=== PATIENT | female | born 1995 | race Caucasian/White ===

== ENCOUNTER 2023-12-17 12:38 | Inpatient (IN) | payer OTHER ==
[2023-12-17 14:54] VITALS: BMI 23.2
[2023-12-17] MEDS ORDERED: IBUPROFEN 400 MG TABLET (FP) PO PRN (15:23)
[2023-12-17] MEDS ORDERED: diazePAM 5 MG TABLET PO PRN (15:23)
[2023-12-17] MEDS ORDERED: NALOXONE HCL (KLOXXADO) 8 MG SPRAY NS PRN (15:23)
[2023-12-17] MEDS ORDERED: DICYCLOMINE HCL 10 MG CAPSULE PO PRN (15:23)
[2023-12-17] MEDS ORDERED: BENZONATATE 200 MG CAPSULE PO PRN (15:23)
[2023-12-17] MEDS ORDERED: NICOTINE POLACRILEX 2 MG GUM BUC PRN (15:23)
[2023-12-17] MEDS ORDERED: BENZOCAINE/MENTHOL (CHLORASEPTIC ) LOZENGE MM PRN (15:23)
[2023-12-17] MEDS ORDERED: LOPERAMIDE HCL 2 MG CAPSULE PO PRN (15:23)
[2023-12-17] MEDS ORDERED: MAGNESIUM HYDROX 2400MG/30ML ORAL SUSPENSION 30 ML CUP PO PRN (15:23)
[2023-12-17] MEDS ORDERED: IBUPROFEN 600 MG TABLET (FP) PO PRN (15:23)
[2023-12-17] MEDS ORDERED: NALOXONE HCL 0.4 MG/ML VIAL IM PRN (15:23)
[2023-12-17] MEDS ORDERED: BISMUTH SUBSALICYLATE 524 MG/30 ML PO PRN (15:23)
[2023-12-17] MEDS ORDERED: ACETAMINOPHEN 325 MG TABLET (FP) PO PRN (15:23)
[2023-12-17] MEDS ORDERED: guaiFENesin 600 MG TABLET.ER (FP) PO PRN (15:23)
[2023-12-17] MEDS ORDERED: POLYETHYLENE GLYCOL (HEALTHYLAX) 3350 17 GM PACKET PO PRN (15:23)
[2023-12-17] MEDS ORDERED: MAG HYDROX/AL HYDROX/SIMETH 30 ML UNIT-DOSE CUP PO PRN (15:23)
[2023-12-17] MEDS ORDERED: ONDANSETRON *ODT* 4 MG TABLET SL PRN (15:23)
[2023-12-17] MEDS: diazePAM 5 MG TABLET PO SCH (18:15)
[2023-12-17] MEDS: MELATONIN 5 MG TABLETS PO SCH (22:21)
[2023-12-17] MEDS: THIAMINE 100 MG TABLET PO SCH (22:21)
[2023-12-18] MEDS ORDERED: methaDONE HCL 10 MG TABLET PO ONE (10:00)
[2023-12-18] MEDS: PRENATAL VITAMINS W/ FOLIC ACID TABLET (FP) PO SCH (10:31)
[2023-12-18 11:33] LABS: HEMATOCRIT 41.6 % (32.4-45.2); HEMOGLOBIN 14.1 GM/dL (10.7-15.3); MCH 30.7 pg (25.7-33.7); MEAN CELL VOLUME 90.3 fl (80-96); MEAN PLT VOLUME 7.9 fl (7.5-11.1); PLATELET COUNT 271 10^3/uL (134-434); RBC 4.61 M/mm3 (3.60-5.2); RDW 13.2 % (11.6-15.6); WHITE BLOOD COUNT 6.3 K/mm3 (4.0-10.0)
[2023-12-18 12:01] LABS: CHLORIDE 100 mmol/L (98-107); SODIUM 136 mmol/L (136-145)
[2023-12-18 12:04] LABS: CALCIUM 9.6 mg/dL (8.5-10.1)
[2023-12-18 12:05] LABS: ALBUMIN 3.6 g/dl (3.4-5.0); ANION GAP 8 mmol/L (4-13); BLOOD UREA NITROGEN 6.4 mg/dL (7-18); CO2 28 mmol/L (21-32); GLUCOSE,RANDOM 103 mg/dL (74-106)
[2023-12-18 12:08] LABS: CREATININE 0.7 mg/dL (0.55-1.3); SGOT/AST 25 U/L (15-37); SGPT/ALT 26 U/L (13-61)
[2023-12-18 12:10] LABS: BILIRUBIN,TOTAL 1.3 mg/dL (0.2-1); TOT PROT 7.1 g/dl (6.4-8.2)
[2023-12-18 12:11] LABS: ALK PHOS 80 U/L (45-117)
[2023-12-18] MEDS: NICOTINE 7 MG/24 HOURS TOPICAL PATCH TD PRN (17:31)
[2023-12-18] MEDS: diphenhydrAMINE HCL 50 MG CAPSULE PO PRN (22:18)
[2023-12-19] MEDS: diazePAM 5 MG TABLET PO SCH (05:50)
[2023-12-19] MEDS: methaDONE 40 MG, methaDONE 10 MG PO ONE (05:50)
[2023-12-19] MEDS ORDERED: methaDONE HCL 10 MG TABLET PO ONE (10:00)
[2023-12-20] MEDS: diazePAM 5 MG TABLET PO SCH (05:40)
[2023-12-20] MEDS ORDERED: methaDONE HCL 10 MG TABLET PO ONE (10:00)
[2023-12-20] MEDS: METHOCARBAMOL 500 MG TABLET PO PRN (22:31)
[2023-12-21] MEDS: methaDONE HCL 40 MG DISPERSABLE TABLET PO ONE (06:02)
[2023-12-21] MEDS: diazePAM 5 MG TABLET PO ONE (06:02)
[2023-12-21] MEDS: hydrOXYzine PAMOATE 25 MG CAPSULE (FP) PO PRN (17:56)
[2023-12-22] MEDS ORDERED: methaDONE HCL 10 MG TABLET PO ONE (06:00)
[2023-12-22] MEDS: diazePAM 5 MG TABLET PO ONE (06:04)
[2023-12-22 09:11] VITALS: BP 101/64; PULSE 90; RESP 18; TEMP 97.7
== END 2023-12-22 10:00 | disposition home or self-care (01) | DRG 773 ==
LOC: YASAS 12:38 → Y6N 16:56
PROVIDERS: ADMIT Allergy & Immunology; ATTEND Surgery
PROC: HZ2ZZZZ Detoxification Services for Substance Abuse Treatment (ICD-10-PCS; principal; 2023-12-17)
DX: F10.230 Alcohol dependence with withdrawal, uncomplicated (principal); F11.20 Opioid dependence, uncomplicated; F12.20 Cannabis dependence, uncomplicated; F17.213 Nicotine dependence, cigarettes, with withdrawal; F43.10 Post-traumatic stress disorder, unspecified; F41.9 Anxiety disorder, unspecified
CPT/HCPCS: 36415; 80053; 80305; 80307; 81025; 85027; 86780; 93005; 93010

== ENCOUNTER 2024-04-02 11:39 | Inpatient (IN) | payer OTHER ==
[2024-04-02 12:20] VITALS: BMI 22.6
[2024-04-02] MEDS ORDERED: NALOXONE (NARCAN) HCL 4 MG/0.1 ML SPRAY NS PRN (13:58)
[2024-04-02] MEDS ORDERED: MAGNESIUM HYDROX 2400MG/30ML ORAL SUSPENSION 30 ML CUP PO PRN (13:58)
[2024-04-02] MEDS ORDERED: NALOXONE HCL 0.4 MG/ML VIAL IM PRN (13:58)
[2024-04-02] MEDS ORDERED: ONDANSETRON *ODT* 4 MG TABLET SL PRN (13:58)
[2024-04-02] MEDS ORDERED: diazePAM 5 MG TABLET PO PRN (13:58)
[2024-04-02] MEDS ORDERED: guaiFENesin 600 MG TABLET.ER (FP) PO PRN (13:58)
[2024-04-02] MEDS ORDERED: BENZOCAINE/MENTHOL (CHLORASEPTIC ) LOZENGE MM PRN (13:58)
[2024-04-02] MEDS ORDERED: MAG HYDROX/AL HYDROX/SIMETH 30 ML UNIT-DOSE CUP PO PRN (13:58)
[2024-04-02] MEDS ORDERED: DICYCLOMINE HCL 10 MG CAPSULE PO PRN (13:58)
[2024-04-02] MEDS ORDERED: BISMUTH SUBSALICYLATE 524 MG/30 ML PO PRN (13:58)
[2024-04-02] MEDS ORDERED: POLYETHYLENE GLYCOL (HEALTHYLAX) 3350 17 GM PACKET PO PRN (13:58)
[2024-04-02] MEDS ORDERED: BENZONATATE 200 MG CAPSULE PO PRN (13:58)
[2024-04-02] MEDS ORDERED: LOPERAMIDE HCL 2 MG CAPSULE PO PRN (13:58)
[2024-04-02] MEDS ORDERED: PRENATAL VITAMINS W/ FOLIC ACID TABLET (FP) PO ONE (15:02)
[2024-04-02] MEDS ORDERED: IBUPROFEN 400 MG TABLET (FP) PO ONE (15:02)
[2024-04-02] MEDS: PRENATAL VITAMINS W/ FOLIC ACID TABLET (FP) PO SCH (15:05)
[2024-04-02] MEDS: IBUPROFEN 400 MG TABLET (FP) PO PRN (15:05)
[2024-04-02] MEDS: diazePAM 5 MG TABLET PO SCH (17:27)
[2024-04-02] MEDS: hydrOXYzine PAMOATE 25 MG CAPSULE (FP) PO PRN (17:28)
[2024-04-02] MEDS: MELATONIN 5 MG TABLETS PO SCH (22:20)
[2024-04-02] MEDS: THIAMINE 100 MG TABLET PO SCH (22:20)
[2024-04-02] MEDS: METHOCARBAMOL 500 MG TABLET PO PRN (22:21)
[2024-04-02] MEDS: ACETAMINOPHEN 325 MG TABLET (FP) PO PRN (22:21)
[2024-04-03] MEDS: IBUPROFEN 600 MG TABLET (FP) PO PRN (05:33)
[2024-04-03] MEDS: NICOTINE 14 MG/24 HOURS TOPICAL PATCH TD SCH (10:16)
[2024-04-03 12:47] LABS: HEMATOCRIT 42.6 % (32.4-45.2); HEMOGLOBIN 14.3 GM/dL (10.7-15.3); MCH 30.8 pg (25.7-33.7); MCHC 33.6 g/dl (32.0-36.0); MEAN CELL VOLUME 91.5 fl (80-96); MEAN PLT VOLUME 8.6 fl (7.5-11.1); PLATELET COUNT 412 10^3/uL (134-434); RBC 4.66 M/mm3 (3.60-5.2); RDW 12.9 % (11.6-15.6); WHITE BLOOD COUNT 9.3 K/mm3 (4.0-10.0)
[2024-04-03 12:59] LABS: POTASSIUM 3.9 mmol/L (3.5-5.1)
[2024-04-03 13:14] LABS: ALBUMIN 4.6 g/dl (3.4-5.0); BLOOD UREA NITROGEN 17.3 mg/dL (7-18)
[2024-04-03 13:15] LABS: CALCIUM 9.5 mg/dL (8.5-10.1)
[2024-04-03 13:19] LABS: BILIRUBIN,TOTAL 1.2 mg/dL (0.2-1); TOT PROT 7.9 g/dl (6.4-8.2)
[2024-04-03 13:20] LABS: CREATININE 0.9 mg/dL (0.55-1.3)
[2024-04-03] MEDS: SUVOREXANT 5 MG TABLET PO PRN (22:02)
[2024-04-04] MEDS: diazePAM 5 MG TABLET PO SCH (05:42)
[2024-04-04 18:47] VITALS: RESP 16
[2024-04-04] MEDS: NICOTINE POLACRILEX 4 MG GUM BUC PRN (19:00)
[2024-04-05] MEDS: diazePAM 5 MG TABLET PO SCH (06:02)
[2024-04-05 09:36] VITALS: BP 106/72; PULSE 83; TEMP 96.8
[2024-04-06] MEDS ORDERED: diazePAM 5 MG TABLET PO ONE (06:00)
== END 2024-04-05 11:09 | disposition home or self-care (01) | DRG 774 ==
LOC: YASAS 11:39 → Y6N 15:05
PROVIDERS: ADMIT Allergy & Immunology; ATTEND Psychiatry & Neurology Pain Medicine
PROC: HZ2ZZZZ Detoxification Services for Substance Abuse Treatment (ICD-10-PCS; principal; 2024-04-02)
DX: F10.230 Alcohol dependence with withdrawal, uncomplicated (principal); F14.20 Cocaine dependence, uncomplicated; F13.20 Sedative, hypnotic or anxiolytic dependence, uncomplicated; F17.210 Nicotine dependence, cigarettes, uncomplicated; F19.282 Other psychoactive substance dependence with psychoactive substance-induced sleep disorder; F19.24 Other psychoactive substance dependence with psychoactive substance-induced mood disorder; F41.9 Anxiety disorder, unspecified; F43.10 Post-traumatic stress disorder, unspecified; G47.00 Insomnia, unspecified
CPT/HCPCS: 36415; 80053; 80305; 80307; 81025; 85027; 86780; 93005; 93010